=== PATIENT | female | born 1990 | race Caucasian/White ===

== ENCOUNTER 2022-05-11 18:44 | Emergency (ER) | payer OTHER ==
[~2022-05-11] VITALS: Ht 162.6 cm; Wt 95.0 kg
[2022-05-11 18:56] VITALS: BP 130/94
[2022-05-11 19:40] LABS: URINE HCG NEGATIVE (NEG)
[2022-05-11] MEDS ORDERED: ibuprofen tablet 400 MG TABLET PO ONE (22:15)
== END 2022-05-11 23:40 | disposition home or self-care (01) ==
LOC: ER 18:46
DX: R07.89 Other chest pain (principal); Z20.822 Contact with and (suspected) exposure to COVID-19; R42 Dizziness and giddiness; R11.0 Nausea; Z98.890 Other specified postprocedural states
CPT/HCPCS: 71046; 81025; 87635; 93005; 99285; C9803